=== PATIENT | female | born 2000 | race Caucasian/White ===

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

== ENCOUNTER 2021-06-10 20:07 | Emergency (ER) | payer BC ==
[2021-06-10] MEDS ORDERED: Lidocaine 1% 10 ML MDV INJECT ONE (20:45)
--- NOTE | 2021-06-10 21:23 | EDM.PDOC ---
ED HPI GENERAL MEDICAL PROBLEM - General Chief Complaint: Skin Complaint Stated Complaint: FISHING HOOK IN LEG Time Seen by Provider: 06/10/21 20:36 Source of Information: Reports: Patient History Limitations: Reports: No Limitations - History of Present Illness INITIAL COMMENTS - FREE TEXT/NARRATIVE: The patient presents with a fish hook in her left leg. She was getting ready to go fishing this evening and was in the car getting a lure and it pocked her in the left lateral leg. It was a new lure and not dirty. Her tetanus is up to date. Onset: Sudden Duration: Minutes: Location: Reports: Lower Extremity, Left (leg) Quality: Reports: Sharp Severity: Mild Improves with: Reports: None Worsens with: Reports: None Associated Symptoms: Reports: No Other Symptoms - Related Data Allergies Allergy/AdvReac Type Severity Reaction Status Date / Time No Known Allergies Allergy Verified 05/18/20 15:31 Home Meds: Home Meds Ciprofloxacin [IJD: Ciprofloxacin HCl] 500 mg PO BID #14 tab 02/21/17 [Rx] Past Medical History - Past Health History Medical/Surgical History: Denies Medical/Surgical History - Past Surgical History HEENT Surgical History: Reports: Oral Surgery Social & Family History - Caffeine Use Caffeine Use: Reports: None ED ROS GENERAL - Review of Systems Review Of Systems: See Below Constitutional: Reports: No Symptoms HEENT: Reports: No Symptoms Respiratory: Reports: No Symptoms Cardiovascular: Reports: No Symptoms Endocrine: Reports: No Symptoms GI/Abdominal: Reports: No Symptoms : Reports: No Symptoms Musculoskeletal: Reports: Other (Fish hook left leg) ED EXAM, SKIN/RASH Exam: See Below Exam Limited By: No Limitations General Appearance: Alert, No Apparent Distress Ears: Normal External Exam Nose: Normal Inspection Head: Atraumatic, Normocephalic Neck: Normal Inspection Respiratory/Chest: No Respiratory Distress Extremities: Other (Fish hook to the left lateral leg just below the knee) ED SKIN PROCEDURES - Foreign Body Removal Indication:: Fish hook left leg Consent Obtained:: Patient Performing Doctor:: Gautam Nielsen Foreign Body Other Location Comment:: Left leg Anesthesia Type: Local Complications:: No Course - Orders/Labs/Meds Meds: Medications Discontinued Medications Generic Name Dose Route Start Last Admin Trade Name Freq PRN Reason Stop Dose Admin Lidocaine HCl 10 ml 06/10/21 20:45 06/10/21 21:15 Lidocaine 1% 10 Ml Mdv INJECT 06/10/21 20:46 10 ml ONETIME ONE Administration - Re-Assessments/Exams Free Text/Narrative Re-Assessment/Exam: 06/10/21 21:24 I cleaned the skin around the fish hook. I used about 2ccs of lidocaine and I pushed the fish hook through the skin and cut off the chance and pulled it back through. She tolerated the procedure well. There were no complications. Departure - Departure Time of Disposition: 21:35 Disposition: Home, Self-Care 01 Condition: Good Clinical Impression: Fish hook injury of left lower leg Qualifiers: Encounter type: initial encounter Qualified Code(s): S89.92XA - Unspecified injury of left lower leg, initial encounter - Discharge Information *PRESCRIPTION DRUG MONITORING PROGRAM REVIEWED*: Not Applicable *COPY OF PRESCRIPTION DRUG MONITORING REPORT IN PATIENT NONA: Not Applicable Referrals: Lurdes Salomon PA-C [Primary Care Provider] - 1 Week Forms: ED Department Discharge Additional Instructions: Clean the wound with warm soapy water 2 times per day and apply antibiotic ointment after for about a week. Look for any signs of infection such as redness, swelling, pain or discharge. If you see any of those signs, please return of see your doctor. You may need oral antibiotics.
== END 2021-06-10 21:37 | disposition home or self-care (01) ==
LOC: JD.ED 20:07
DX: S80.852A Superficial foreign body, left lower leg, initial encounter (principal); W45.8XXA Other foreign body or object entering through skin, initial encounter
CPT/HCPCS: 99283

== ENCOUNTER 2022-06-01 15:52 | Emergency (ER) | payer BC, MEDICAID ==
[2022-06-01] MEDS ORDERED: Ketorolac 30 MG/ML SDV IM ONE (17:04)
[2022-06-01] MEDS ORDERED: Bacitracin Oint 15 GM Tube TOP ONE (17:07)
[2022-06-01 18:15] VITALS: BP 118/74; PULSE 68
== END 2022-06-01 18:32 | disposition home or self-care (01) ==
LOC: JD.ED 15:52
DX: T23.261A Burn of second degree of back of right hand, initial encounter (principal)
CPT/HCPCS: 96372; 99282; A9270; J1885

== ENCOUNTER 2022-06-21 12:35 | Emergency (ER) | payer BC, MEDICAID ==
[2022-06-21] MEDS ORDERED: Albuterol 0.083% 2.5 MG/3 ML Neb Soln NEB ONE (14:09)
[2022-06-21 15:33] LABS: CORONAVIRUS COVID-19 NAA NEGATIVE (NEGATIVE)
[2022-06-21] MEDS ORDERED: Albuterol 6.7 GM Inhaler INH ONE (15:48)
[2022-06-21 16:30] VITALS: BP 138/74; PULSE 100
== END 2022-06-21 16:30 | disposition home or self-care (01) ==
LOC: JD.ED 12:35
DX: J06.9 Acute upper respiratory infection, unspecified (principal); Z87.891 Personal history of nicotine dependence; Z20.822 Contact with and (suspected) exposure to COVID-19
CPT/HCPCS: 0241U; 71045; 94640; 99285; A9270; 99283

== ENCOUNTER 2022-06-24 01:16 | Emergency (ER) | payer BC ==
[2022-06-24 01:30] VITALS: BP 141/80; PULSE 110
== END 2022-06-24 02:13 | disposition home or self-care (01) ==
LOC: JD.ED 01:16
DX: R05.9 Cough, unspecified (principal); E66.9 Obesity, unspecified; Z68.31 Body mass index [BMI] 31.0-31.9, adult; Z87.891 Personal history of nicotine dependence
CPT/HCPCS: 99283